=== PATIENT | female | born 1955 | race Caucasian/White ===

== ENCOUNTER 2023-03-09 11:37 | Outpatient (CLI) | payer MEDICARE ==
[2023-03-09 13:46] LABS: Anion Gap 12 mmol/L (10-20); BUN (Urea Nitrogen) 9 mg/dL (9.8-20.1); Calc. Creatinine Clearance 0 mL/min (70-130); Calcium 9.4 mg/dL (7.8-10.44); Carbon Dioxide 31 mmol/L (23-31); Chloride 103 mmol/L (98-107); Estimated GFR 81; Glucose 101 mg/dL (80-115); Potassium 4.2 mmol/L (3.5-5.1); Sodium 142 mmol/L (136-145)
== END 2023-03-09 11:38 | disposition home or self-care (01) ==
LOC: CSHLAB 11:37
PROVIDERS: ATTEND Surgery
DX: Z01.818 Encounter for other preprocedural examination (principal); K64.8 Other hemorrhoids
CPT/HCPCS: 80048; 93005; 93010

== ENCOUNTER 2023-03-11 05:52 | Day surgery (SDC) | payer MEDICARE ==
[2023-03-09 12:38] VITALS: BMI 29.1
[2023-03-11] MEDS ORDERED: Bupivacaine PF 0.5% 30 ML VIAL ONE (06:52)
[2023-03-11] MEDS ORDERED: Lidocaine 2% 6 ML (Jelly) SYR ONE (06:52)
[2023-03-11] MEDS ORDERED: EPINEPHrine 1 MG/ML VIAL ONE (06:52)
[2023-03-11] MEDS ORDERED: Dexamethasone 4 mg/ml Vial ONE (07:01)
[2023-03-11] MEDS ORDERED: Midazolam HCl 2 mg/2 ml Vial ONE (07:01)
[2023-03-11] MEDS ORDERED: fentaNYL 50 mcg/mL 1 mL Vial ONE ×3 (07:01→08:34)
[2023-03-11] MEDS ORDERED: Lidocaine 2% PF 5 ML VIAL ONE (07:01)
[2023-03-11] MEDS ORDERED: PROPOFOL 20 ML ONE (07:01)
[2023-03-11] MEDS ORDERED: Ondansetron PF 4 MG/2 ML Vial ONE (07:01)
[2023-03-11] MEDS ORDERED: ceFOXitin 1 GM VIAL ONE (07:08)
[2023-03-11] MEDS ORDERED: Glycopyrrolate 0.2 MG/ML 5 ML SYRINGE ONE (07:52)
[2023-03-11] MEDS ORDERED: PHENYLEPHRINE-NS 100 MCG/ML 10 ML SYRINGE ONE (07:52)
[2023-03-11] MEDS ORDERED: HYDROcodone/Acetaminophen 5/325 mg Tablet PO PRN ×2 (08:19)
[2023-03-11] MEDS ORDERED: HYDROcodone/Acetaminophen 5/325 mg Tablet ONE (08:58)
== END 2023-03-11 09:50 | disposition home or self-care (01) ==
LOC: CSHSDC 05:52
PROVIDERS: ATTEND Surgery
PROC: 065Y3ZC Destruction of Hemorrhoidal Plexus, Percutaneous Approach (ICD-10-PCS; principal; 2023-03-11)
DX: K64.8 Other hemorrhoids (principal); I10 Essential (primary) hypertension; J45.909 Unspecified asthma, uncomplicated; M54.9 Dorsalgia, unspecified; C50.919 Malignant neoplasm of unspecified site of unspecified female breast; Z90.710 Acquired absence of both cervix and uterus; Z90.49 Acquired absence of other specified parts of digestive tract; Z98.890 Other specified postprocedural states; Z79.899 Other long term (current) drug therapy; Z85.3 Personal history of malignant neoplasm of breast; Z88.8 Allergy status to other drugs, medicaments and biological substances
CPT/HCPCS: 46260; J0171; J3010; 88304; J0694; J1100; J2001; J2250; J2405; J2704; S0020